=== PATIENT | male | born 1955 | race Hispanic/Latino ===

== ENCOUNTER 2017-12-20 00:33 | Emergency (ER) | payer SELFPAY ==
[~2017-12-20] VITALS: Ht 167.6 cm; Wt 83.5 kg
[2017-12-20 03:02] VITALS: BP 161/89
== END 2017-12-20 03:00 | disposition home or self-care (01) ==
LOC: FSED 00:33
DX: R33.9 Retention of urine, unspecified (principal); R10.9 Unspecified abdominal pain; K59.00 Constipation, unspecified; I10 Essential (primary) hypertension
CPT/HCPCS: 81003; 99283